=== PATIENT | female | born 1990 | race Caucasian/White ===

== ENCOUNTER 2017-01-22 14:24 | Emergency (ER) | payer MEDICAID, OTHER ==
[~2017-01-22] VITALS: Ht 160 cm; Wt 67.1 kg
[2017-01-22 14:30] VITALS: BP 125/83
[2017-01-22] MEDS ORDERED: KETOROLAC TROMETH 60MG/2ML VIAL IM ONE (16:15)
== END 2017-01-22 16:46 | disposition home or self-care (01) ==
LOC: ER 14:30
DX: G44.209 Tension-type headache, unspecified, not intractable (principal); M62.838 Other muscle spasm
CPT/HCPCS: 96372; 99283; J1885

== ENCOUNTER 2018-03-12 18:10 | Emergency (ER) | payer MEDICAID ==
[~2018-03-12] VITALS: Ht 160 cm; Wt 49.9 kg
[2018-03-12 19:37] LABS: Urine Amorphous Crystal MOD /hpf (None Seen); Urine Bacteria NONE SEEN /hpf (None Seen); Urine Blood Negative /uL (Negative); Urine Specific Gravity 1.014 (1.001-1.035); Urine WBC 14 /hpf (0 - 5)
[2018-03-12 19:48] LABS: Alcohol, Urine < 3.0 mg/dL (0-5); Amphetamine Screen, Urine NEGATIVE (NEGATIVE); Barbiturate Scree,Urine NEGATIVE (NEGATIVE); Benzodiazephine Screen, Urine NEGATIVE (NEGATIVE); Cannabinoid Screen, Urine POSITIVE (NEGATIVE); Cocaine Screen, Urine NEGATIVE (NEGATIVE); Opiate Scree,Urine NEGATIVE (NEGATIVE); Phencyclidine Screen, Urine NEGATIVE (NEGATIVE)
[2018-03-13] MEDS ORDERED: ALPRAZolam 0.5 MG TAB PO ONE (00:30)
[2018-03-13 00:32] VITALS: BP 102/74
== END 2018-03-13 00:45 | disposition home or self-care (01) ==
LOC: ER 18:10
DX: F41.9 Anxiety disorder, unspecified (principal); N39.0 Urinary tract infection, site not specified; F17.210 Nicotine dependence, cigarettes, uncomplicated
CPT/HCPCS: 80307; 81001; 81025

== ENCOUNTER 2018-07-12 21:30 | Emergency (ER) | payer MEDICAID ==
[~2018-07-12] VITALS: Ht 160 cm; Wt 49.9 kg
[2018-07-12 22:11] VITALS: BP 127/77
== END 2018-07-12 23:30 | disposition home or self-care (01) ==
LOC: ER 21:37
DX: M62.838 Other muscle spasm (principal); M54.2 Cervicalgia; M25.512 Pain in left shoulder; M25.511 Pain in right shoulder; V49.59XA Passenger injured in collision with other motor vehicles in traffic accident, initial encounter; Y93.89 Activity, other specified; Y99.8 Other external cause status; Y92.89 Other specified places as the place of occurrence of the external cause

== ENCOUNTER 2018-08-30 18:00 | Emergency (ER) | payer MEDICAID ==
[~2018-08-30] VITALS: Ht 160 cm; Wt 49.9 kg
[2018-08-30 19:04] LABS: Basophils # (auto) 0.1 uL; Basophils % (auto) 0.8 % (0.0-2.0); Eosinophils # (auto) 0.1 uL; Eosinophils % (auto) 1.5 % (0.0-7.0); Hematocrit 38.1 % (36.0-46.0); Hemoglobin 12.6 g/dL (12.2-16.2); Lymphocytes % (auto) 32.4 % (10.0-50.0); Mean Corpuscular Hemoglobin 28.6 pg (28.0-32.0); Mean Corpuscular Volume 86.7 fL (80.0-100.0); Monocytes # (auto) 0.5 uL; Monocytes % (auto) 5.7 % (0.0-12.0); Neutrophils # (auto) 5.5 uL; Neutrophils % (auto) 59.6 % (37.0-80.0); Platelet Count (auto) 221 10^3/uL (140-450); Red Cell Distribution Width 14.6 % (11.8-14.3); White Blood Cell 9.2 10^3/uL (4.4-10.8)
[2018-08-30] MEDS ORDERED: ONDANSETRON HCL 4 MG/2 ML VIAL IV ONE (19:15)
[2018-08-30] MEDS ORDERED: MORPHINE SULFATE 4 MG/ML SYR/VIAL IV ONE (19:15)
[2018-08-30] MEDS ORDERED: medroxyPROGESTERone ACETATE 5 MG TAB PO ONE (19:30)
[2018-08-30 19:56] VITALS: BP 103/61
== END 2018-08-30 20:16 | disposition home or self-care (01) ==
LOC: ER 18:00
DX: N93.8 Other specified abnormal uterine and vaginal bleeding (principal)
CPT/HCPCS: 36415; 84702; 85025; 96374; 96375; 99283; J2270; J2405

== ENCOUNTER 2019-03-29 18:14 | Emergency (ER) | payer MEDICAID ==
[~2019-03-29] VITALS: Ht 160 cm; Wt 59.0 kg
[2019-03-29] MEDS ORDERED: ACETAMINOPHEN/CODEINE#3 (300/30mg) TAB PO ONE (20:00)
[2019-03-29] MEDS ORDERED: DexAMETHasone SOD PHOS 10MG/1ML VIAL INJ IM ONE (20:00)
[2019-03-29] MEDS ORDERED: cefTRIAXone SOD 1,000 MG VL IM ONE (20:00)
[2019-03-29] MEDS ORDERED: LIDOCAINE 1% HCL (LOCAL ANESTH.) INJ 20ML MDV ONE (20:25)
[2019-03-29 20:34] VITALS: BP 116/68
[2019-03-29] MEDS ORDERED: LIDOCAINE 1% HCL (LOCAL ANESTH.) INJ 20ML MDV ID ONE (20:45)
== END 2019-03-29 21:48 | disposition home or self-care (01) ==
LOC: ER 18:14
DX: J06.9 Acute upper respiratory infection, unspecified (principal); R50.9 Fever, unspecified
CPT/HCPCS: 96372; 99283; J0696; J1100; J2001

== ENCOUNTER 2019-08-08 08:48 | Emergency (ER) | payer SELFPAY ==
[~2019-08-08] VITALS: Ht 160 cm; Wt 61.2 kg
[2019-08-08 09:15] VITALS: BP 111/71
[2019-08-08 09:36] LABS: Urine Bacteria NONE SEEN /hpf (None Seen); Urine Blood Negative /uL (Negative); Urine Specific Gravity 1.007 (1.001-1.035); Urine WBC <1 /hpf (0 - 5)
[2019-08-08 09:56] LABS: Basophils # (auto) 0.1 uL; Eosinophils # (auto) 0.1 uL; Hemoglobin 11.8 g/dL (12.2-16.2); Monocytes # (auto) 0.6 uL; Red Cell Distribution Width 19.3 % (11.8-14.3); White Blood Cell 7.5 10^3/uL (4.4-10.8)
[2019-08-08 09:58] LABS: Eosinophils % (auto) 1.8 % (0.0-7.0); Hematocrit 36.3 % (36.0-46.0); Lymphocytes % (auto) 26.5 % (10.0-50.0); Mean Corpuscular Hemoglobin 23.9 pg (28.0-32.0); Mean Corpuscular Hgb Conc. 32.5 g/dL (32.0-36.0); Mean Corpuscular Volume 73.5 fL (80.0-100.0); Monocytes % (auto) 7.5 % (0.0-12.0); Neutrophils # (auto) 4.7 uL; Neutrophils % (auto) 63.2 % (37.0-80.0); Platelet Count (auto) 210 10^3/uL (140-450); Red Blood Cells 4.94 10^6/uL (4.0-5.20)
[2019-08-08 10:14] LABS: Albumin 3.9 g/dL (3.4-5.0); Calcium 8.9 mg/dL (8.5-10.1); Potassium 4.2 mmol/L (3.5-5.1)
[2019-08-08] MEDS ORDERED: KETOROLAC TROMETH 60MG/2ML VIAL IM ONE (10:15)
[2019-08-08 10:18] LABS: BUN/Creatinine Ratio 12.4; Bilirubin, Total 0.5 mg/dL (0.2-1.0); Total Protein 7.1 g/dL (6.4-8.2)
== END 2019-08-08 10:47 | disposition home or self-care (01) ==
LOC: ER 08:48
DX: K29.70 Gastritis, unspecified, without bleeding (principal)
CPT/HCPCS: 36415; 74176; 80053; 81001; 85025; 96372; 99284; J1885

== ENCOUNTER 2022-05-03 18:06 | Observation (INO) | payer MEDICAID, OTHER ==
[~2022-05-03] VITALS: Ht 160 cm; Wt 60.0 kg
[2022-05-03 19:17] LABS: Urine Amorphous Crystal FEW /hpf (None Seen); Urine Bacteria MOD /hpf (None Seen); Urine Blood Negative /uL (Negative); Urine Mucus FEW (None Seen); Urine Specific Gravity 1.008 (1.001-1.035); Urine WBC 7 /hpf (0 - 5)
[2022-05-03 21:23] VITALS: BP 107/68
[2022-05-03] MEDS ORDERED: FERR-7 PO (22:01)
[2022-05-03] MEDS ORDERED: PREN-96 PO (22:01)
== END 2022-05-04 00:26 | disposition home or self-care (01) ==
LOC: ER 18:07 → UNDOADMOB 20:47 → LDRP 20:47 → ER 21:41 → LDRP 21:47
PROVIDERS: ADMIT Obstetrics & Gynecology Obstetrics; ATTEND Obstetrics & Gynecology Obstetrics
DX: O23.42 Unspecified infection of urinary tract in pregnancy, second trimester (principal); O62.9 Abnormality of forces of labor, unspecified; O26.892 Other specified pregnancy related conditions, second trimester; R10.2 Pelvic and perineal pain; D84.9 Immunodeficiency, unspecified; O99.891 Other specified diseases and conditions complicating pregnancy; M54.9 Dorsalgia, unspecified; Z3A.26 26 weeks gestation of pregnancy; Z98.891 History of uterine scar from previous surgery; Z79.899 Other long term (current) drug therapy
CPT/HCPCS: 59025; 76815; 81001; 81002; 94760; 99284; G0378

== ENCOUNTER 2023-10-10 14:09 | Emergency (ER) | payer MEDICAID, OTHER ==
[~2023-10-10] VITALS: Ht 160 cm; Wt 62.2 kg
[~2023-10-10 14:09] MED LIST: FERR-7 PO; PREN-96 PO
[2023-10-10 14:47] LABS: Basophils # (auto) 0.1 10 ^3/uL (0-0.2); Eosinophils # (auto) 0.2 10 ^3/uL (0-0.8); Hemoglobin 9.6 g/dL (12.2-16.2); Monocytes # (auto) 0.6 10 ^3/uL (0-1.3); Monocytes % (auto) 6.2 % (0.0-12.0)
[2023-10-10 14:48] LABS: Hematocrit 30.8 % (36.0-46.0); Lymphocytes # (auto) 3.2 10 ^3/uL (0.4-5.4); Lymphocytes % (auto) 33.4 % (10.0-50.0); Mean Corpuscular Hgb Conc. 31.2 g/dL (32.0-36.0); Mean Corpuscular Volume 73.6 fL (80.0-100.0); Neutrophils # (auto) 5.5 10 ^3/uL (1.6-8.6); Neutrophils % (auto) 57.4 % (37.0-80.0); Red Blood Cells 4.18 10^6/uL (4.0-5.20); Red Cell Distribution Width 18.1 % (11.8-14.3); White Blood Cell 9.5 10^3/uL (4.4-10.8)
[2023-10-10 14:56] LABS: Urine Bacteria FEW /hpf (None Seen); Urine Blood Negative /uL (Negative); Urine Clarity Clear (Clear); Urine Color Colorless (Yellow); Urine Protein, UAD Negative (Negative); Urine Specific Gravity 1.005 (1.001-1.035); Urine Urobilinogen Normal (Negative); Urine WBC 1 /hpf (0 - 5); Urine pH 6.5 (5.0-8.0)
[2023-10-10 15:02] LABS: Chloride 109 mmol/L (98-107); Potassium 4.3 mmol/L (3.5-5.1); Sodium 138 mmol/L (136-145)
[2023-10-10 15:03] LABS: Anion Gap 3 (5-15); Calcium 8.9 mg/dL (8.7-10.4); Carbon Dioxide 26 mmol/L (20-30)
[2023-10-10 15:08] LABS: BUN/Creatinine Ratio 15.9 (10.0-20.0); Blood Urea Nitrogen 13 mg/dL (9-23); Glucose 87 mg/dL (74-106)
[2023-10-10] MEDS: HYDROcodone-ACET 10/325MG TAB PO ONE (16:28)
[2023-10-10] MEDS ORDERED: HYDR-4902 PO (21:16)
[2023-10-10 22:45] VITALS: BP 109/75; PULSE 73; RESP 16; TEMP 98; O2SAT 100
== END 2023-10-10 23:01 | disposition home or self-care (01) ==
LOC: ER 14:09
DX: D21.9 Benign neoplasm of connective and other soft tissue, unspecified (principal); N83.202 Unspecified ovarian cyst, left side; N83.201 Unspecified ovarian cyst, right side; F17.290 Nicotine dependence, other tobacco product, uncomplicated
CPT/HCPCS: 36415; 74176; 76856; 80048; 81001; 84702; 85025

== ENCOUNTER 2023-12-10 21:01 | Inpatient (IN) | payer MEDICAID ==
[~2023-12-10] VITALS: Ht 160 cm; Wt 101.0 kg
[~2023-12-10 21:01] MED LIST changes: +HYDR-4902 PO
[2023-12-10 21:41] LABS: Chloride 107 mmol/L (98-107); Sodium 138 mmol/L (136-145)
[2023-12-10 21:42] LABS: Anion Gap 5 (5-15); Carbon Dioxide 26 mmol/L (20-30)
[2023-12-10] MEDS: ONDANSETRON HCL 4 MG/2 ML VIAL IV ONE (21:42)
[2023-12-10 21:43] LABS: Calcium 10.3 mg/dL (8.7-10.4)
[2023-12-10 21:48] LABS: BUN/Creatinine Ratio 9.5 (10.0-20.0); Blood Urea Nitrogen 8 mg/dL (9-23); Glucose 89 mg/dL (74-106)
[2023-12-10] MEDS: MORPHINE SULFATE 4 MG/ML SYR/VIAL IV ONE (21:49)
[2023-12-10 21:52] LABS: Urine Bacteria None Seen /hpf (None Seen)
[2023-12-10 21:58] LABS: Basophils # (auto) 0.1 10 ^3/uL (0-0.2); Basophils % (auto) 0.8 % (0.0-2.0); Eosinophils # (auto) 0.1 10 ^3/uL (0-0.8); Monocytes # (auto) 0.6 10 ^3/uL (0-1.3); White Blood Cell 10.5 10^3/uL (4.4-10.8)
[2023-12-10 21:58] LABS: Urine Blood Negative /uL (Negative); Urine Clarity Clear (Clear); Urine Color Light-Yellow (Yellow); Urine Protein, UAD Negative (Negative); Urine Specific Gravity 1.011 (1.001-1.035); Urine Urobilinogen Normal (Negative); Urine WBC 6 /hpf (0 - 5)
[2023-12-10 21:59] LABS: Eosinophils % (auto) 1.2 % (0.0-7.0); Hematocrit 34.3 % (36.0-46.0); Hemoglobin 10.7 g/dL (12.2-16.2); Lymphocytes # (auto) 3.2 10 ^3/uL (0.4-5.4); Lymphocytes % (auto) 30.5 % (10.0-50.0); Mean Corpuscular Hemoglobin 22.1 pg (28.0-32.0); Mean Corpuscular Hgb Conc. 31.3 g/dL (32.0-36.0); Mean Corpuscular Volume 70.6 fL (80.0-100.0); Monocytes % (auto) 5.6 % (0.0-12.0); Neutrophils # (auto) 6.5 10 ^3/uL (1.6-8.6); Neutrophils % (auto) 61.9 % (37.0-80.0); Red Blood Cells 4.86 10^6/uL (4.0-5.20)
[2023-12-10 22:01] LABS: Red Cell Distribution Width 21.2 % (11.8-14.3)
[2023-12-11] MEDS: KETOROLAC TROMETH 30 MG/ML 1ML VIAL IV ONE (01:03)
[2023-12-11] MEDS: cefTRIAXone 1GM/50ML D5W 50 ML IV ONE (01:04)
[2023-12-11 01:37] VITALS: PULSE 62; RESP 15; O2SAT 97
[2023-12-11] MEDS ORDERED: MORPHINE SULFATE 4 MG/ML SYR/VIAL IV ONE (02:45)
[2023-12-11] MEDS ORDERED: DOCUSATE SOD 100 MG CAP PO PRN (02:45)
[2023-12-11] MEDS: MORPHINE SULFATE 4 MG/ML SYR/VIAL IV ONE (02:58)
[2023-12-11] MEDS: SODIUM CHLORIDE 0.9% 1,000 ML IV SCH (02:58)
[2023-12-11 03:49] LABS: Basophils # (auto) 0.1 10 ^3/uL (0-0.2); Eosinophils # (auto) 0.2 10 ^3/uL (0-0.8); Hemoglobin 10.1 g/dL (12.2-16.2); Lymphocytes # (auto) 3.9 10 ^3/uL (0.4-5.4); Monocytes # (auto) 0.6 10 ^3/uL (0-1.3); Nucleated Red Blood Cells % 0.1 %
[2023-12-11 03:50] LABS: Basophils % (auto) 1.1 % (0.0-2.0); Eosinophils % (auto) 2.1 % (0.0-7.0); Hematocrit 32.2 % (36.0-46.0); Lymphocytes % (auto) 40.6 % (10.0-50.0); Mean Corpuscular Hemoglobin 22.1 pg (28.0-32.0); Mean Corpuscular Hgb Conc. 31.5 g/dL (32.0-36.0); Mean Corpuscular Volume 70.1 fL (80.0-100.0); Monocytes % (auto) 6.3 % (0.0-12.0); Neutrophils # (auto) 4.8 10 ^3/uL (1.6-8.6); Neutrophils % (auto) 49.9 % (37.0-80.0); White Blood Cell 9.5 10^3/uL (4.4-10.8)
[2023-12-11] MEDS ORDERED: NITROGLYCERIN 0.4 MG SL TAB SL PRN (04:00)
[2023-12-11] MEDS ORDERED: MORPHINE SULFATE INJ 2 MG/ml SYRG IV PRN (04:00)
[2023-12-11 04:01] LABS: Red Cell Distribution Width 21.7 % (11.8-14.3)
[2023-12-11 04:33] LABS: Alanine Aminotransferase 15 U/L (7-40); Alkaline Phosphatase 63 U/L (46-116); Anion Gap 7 (5-15); Aspartate Aminotransferase 13 U/L (13-40); Bilirubin, Total 0.4 mg/dL (0.2-1.0); Blood Urea Nitrogen 8 mg/dL (9-23); Calcium 9.4 mg/dL (8.7-10.4); Carbon Dioxide 24 mmol/L (20-30); Chloride 108 mmol/L (98-107); Glucose 85 mg/dL (74-106); Potassium 3.6 mmol/L (3.5-5.1); Sodium 139 mmol/L (136-145); Total Protein 6.2 g/dL (5.7-8.2)
[2023-12-11 05:57] LABS: Anisocytosis Slight; Hypochromia Moderate; Platelet Estimate Adequate
[2023-12-11 07:30] VITALS: PULSE 65; RESP 13; O2SAT 92
[2023-12-11] MEDS: ONDANSETRON HCL 4 MG/2 ML VIAL IV PRN (08:10)
[2023-12-11] MEDS: MORPHINE SULFATE INJ 2 MG/ml SYRG IV PRN (08:11)
[2023-12-11] MEDS: HYDROcodone-ACET 5/325MG TAB PO PRN (12:58)
[2023-12-11 13:13] VITALS: BP 98/63; PULSE 66; PULSE 80; RESP 18; TEMP 98.2; O2SAT 97; O2SAT 98
[2023-12-11] MEDS ORDERED: ASCO500C49 PO (13:31)
[2023-12-11 17:22] VITALS: BP 101/39; PULSE 69; RESP 20; TEMP 98.3; O2SAT 95
[2023-12-11] MEDS: ACETAMINOPHEN 325 MG TAB PO PRN (20:35)
[2023-12-11 21:00] VITALS: BP 100/55; PULSE 85; RESP 14; TEMP 98.8; O2SAT 98
[2023-12-11 22:12] LABS: Basophils # (auto) 0.1 10 ^3/uL (0-0.2); Basophils % (auto) 1.2 % (0.0-2.0); Eosinophils # (auto) 0.2 10 ^3/uL (0-0.8); Eosinophils % (auto) 2.4 % (0.0-7.0); Hematocrit 32.5 % (36.0-46.0); Hemoglobin 9.9 g/dL (12.2-16.2); Lymphocytes # (auto) 2.3 10 ^3/uL (0.4-5.4); Mean Corpuscular Hemoglobin 21.7 pg (28.0-32.0); Mean Corpuscular Hgb Conc. 30.5 g/dL (32.0-36.0); Mean Corpuscular Volume 71.3 fL (80.0-100.0); Monocytes # (auto) 0.5 10 ^3/uL (0-1.3); Monocytes % (auto) 7.7 % (0.0-12.0); Neutrophils # (auto) 3.9 10 ^3/uL (1.6-8.6); Neutrophils % (auto) 55.7 % (37.0-80.0); Nucleated Red Blood Cells % 0.1 %; Red Blood Cells 4.56 10^6/uL (4.0-5.20); Red Cell Distribution Width 21.8 % (11.8-14.3); White Blood Cell 7.1 10^3/uL (4.4-10.8)
[2023-12-12] MEDS: cefTRIAXone 1GM/50ML D5W 50 ML IV SCH (00:49)
[2023-12-12 01:00] VITALS: BP 93/53; PULSE 63; RESP 14; TEMP 98.6; O2SAT 92
[2023-12-12 05:00] VITALS: BP 101/57; PULSE 79; RESP 14; TEMP 98.2; O2SAT 95
[2023-12-12 07:24] LABS: Basophils # (auto) 0.1 10 ^3/uL (0-0.2); Eosinophils # (auto) 0.2 10 ^3/uL (0-0.8); Hemoglobin 9.8 g/dL (12.2-16.2); Monocytes # (auto) 0.5 10 ^3/uL (0-1.3); White Blood Cell 7.1 10^3/uL (4.4-10.8)
[2023-12-12 07:26] LABS: Basophils % (auto) 0.9 % (0.0-2.0); Eosinophils % (auto) 2.3 % (0.0-7.0); Hematocrit 31.5 % (36.0-46.0); Lymphocytes # (auto) 2.4 10 ^3/uL (0.4-5.4); Lymphocytes % (auto) 34.5 % (10.0-50.0); Mean Corpuscular Hemoglobin 22.1 pg (28.0-32.0); Mean Corpuscular Hgb Conc. 31.2 g/dL (32.0-36.0); Mean Corpuscular Volume 70.9 fL (80.0-100.0); Monocytes % (auto) 6.9 % (0.0-12.0); Neutrophils # (auto) 3.9 10 ^3/uL (1.6-8.6); Neutrophils % (auto) 55.4 % (37.0-80.0); Red Blood Cells 4.45 10^6/uL (4.0-5.20); Red Cell Distribution Width 21.1 % (11.8-14.3)
[2023-12-12 07:38] LABS: Alanine Aminotransferase 12 U/L (7-40); Albumin 3.6 g/dL (3.2-4.8); Alkaline Phosphatase 58 U/L (46-116); Anion Gap 4 (5-15); Aspartate Aminotransferase 9 U/L (13-40); BUN/Creatinine Ratio 15.4 (10.0-20.0); Bilirubin, Total 0.2 mg/dL (0.2-1.0); Blood Urea Nitrogen 12 mg/dL (9-23); Calcium 8.5 mg/dL (8.5-10.1); Carbon Dioxide 26 mmol/L (20-30); Chloride 111 mmol/L (98-107); Glucose 101 mg/dL (74-106); Potassium 4.2 mmol/L (3.5-5.1); Sodium 141 mmol/L (136-145)
[2023-12-12 07:39] LABS: Total Protein 5.3 g/dL (5.7-8.2)
[2023-12-12 09:22] VITALS: BP 98/51; PULSE 75; RESP 16; TEMP 97.6; O2SAT 94
[2023-12-12] MEDS ORDERED: HYDR-4902 PO (11:51)
[2023-12-12] MEDS ORDERED: LEVO500T91 PO (11:51)
[2023-12-12 13:24] VITALS: BP 111/77; PULSE 99; RESP 16; TEMP 97.9; O2SAT 95
== END 2023-12-12 17:10 | disposition home or self-care (01) | DRG 532 ==
LOC: ER 21:01 → TELE 12-11 04:02 → TELE-WESTW 12-11 12:41 → WEST WING 12-11 14:01
PROVIDERS: ADMIT Nurse Practitioner Family; ATTEND Nurse Practitioner Family
DX: N83.202 Unspecified ovarian cyst, left side (principal); D25.9 Leiomyoma of uterus, unspecified; F17.200 Nicotine dependence, unspecified, uncomplicated; N39.0 Urinary tract infection, site not specified; Z79.891 Long term (current) use of opiate analgesic; Z79.899 Other long term (current) drug therapy; Z97.5 Presence of (intrauterine) contraceptive device
CPT/HCPCS: 36415; 76830; 80048; 80053; 81001; 81025; 85025; 87086; 96365; 96375; 96376; G0378; J1885; J2405

== ENCOUNTER 2024-01-07 14:19 | Emergency (ER) | payer MEDICAID ==
[~2024-01-07] VITALS: Ht 160 cm; Wt 100.0 kg
[~2024-01-07 14:19] MED LIST changes: +LEVO500T91 PO; -PREN-96 PO
[2024-01-07] MEDS: HYDROcodone-ACET 5/325MG TAB PO ONE (15:08)
[2024-01-07 15:27] LABS: Basophils # (auto) 0.1 10 ^3/uL (0-0.2)
[2024-01-07 15:29] LABS: Basophils % (auto) 0.7 % (0.0-2.0); Eosinophils # (auto) 0.2 10 ^3/uL (0-0.8); Eosinophils % (auto) 1.5 % (0.0-7.0); Hematocrit 35.5 % (36.0-46.0); Hemoglobin 11.4 g/dL (12.2-16.2); Lymphocytes # (auto) 2.4 10 ^3/uL (0.4-5.4); Lymphocytes % (auto) 23.8 % (10.0-50.0); Mean Corpuscular Hemoglobin 23.3 pg (28.0-32.0); Mean Corpuscular Volume 72.9 fL (80.0-100.0); Monocytes # (auto) 0.6 10 ^3/uL (0-1.3); Monocytes % (auto) 5.5 % (0.0-12.0); Neutrophils % (auto) 68.5 % (37.0-80.0); Red Blood Cells 4.87 10^6/uL (4.0-5.20); White Blood Cell 10.3 10^3/uL (4.4-10.8)
[2024-01-07 15:34] LABS: Red Cell Distribution Width 21.7 % (11.8-14.3)
[2024-01-07 15:50] LABS: Alanine Aminotransferase 20 U/L (7-40); Alkaline Phosphatase 63 U/L (46-116); Anion Gap 5 (5-15); Blood Urea Nitrogen 11 mg/dL (9-23); Calcium 9.9 mg/dL (8.7-10.4); Carbon Dioxide 27 mmol/L (20-30); Chloride 107 mmol/L (98-107); Glucose 98 mg/dL (74-106); Potassium 4.6 mmol/L (3.5-5.1); Sodium 139 mmol/L (136-145)
[2024-01-07 15:51] LABS: Albumin 4.3 g/dL (3.2-4.8); Aspartate Aminotransferase 8 U/L (13-40); Bilirubin, Total 0.3 mg/dL (0.2-1.0); Total Protein 6.5 g/dL (5.7-8.2)
[2024-01-07 17:04] LABS: Urine Bacteria FEW /hpf (None Seen); Urine Blood 3+ /uL (Negative); Urine Clarity Turbid (Clear); Urine Color Light-Red (Yellow); Urine Protein, UAD 2+ (Negative); Urine Specific Gravity 1.006 (1.001-1.035); Urine Urobilinogen Normal (Negative); Urine WBC 18 /hpf (0 - 5)
[2024-01-07] MEDS: NITROFURANTOIN 100 mg CAP PO ONE (17:49)
[2024-01-07] MEDS ORDERED: ACE3T PO (18:03)
[2024-01-07] MEDS ORDERED: NITR-87 PO (18:03)
[2024-01-07 18:25] VITALS: BP 134/75; PULSE 66; RESP 16; TEMP 97.6; O2SAT 98
== END 2024-01-07 18:26 | disposition home or self-care (01) ==
LOC: ER 14:19
DX: N92.0 Excessive and frequent menstruation with regular cycle (principal); R10.2 Pelvic and perineal pain; N39.0 Urinary tract infection, site not specified
CPT/HCPCS: 36415; 80053; 81001; 84702; 85025

== ENCOUNTER 2024-05-25 08:09 | Emergency (ER) | payer MEDICAID ==
[~2024-05-25] VITALS: Ht 160 cm; Wt 91.4 kg
[~2024-05-25 08:09] MED LIST changes: +ACE3T PO; +NITR-87 PO
[2024-05-25 08:52] VITALS: BP 134/83; PULSE 94; RESP 17; TEMP 98.5; O2SAT 98
--- NOTE | 2024-05-25 09:00 | DVH ---
CHEST RADIOGRAPH Indication:COUGH Technique: Single frontal view of the chest was obtained Comparison: None FINDINGS: Lines and Tubes: None Lungs: No focal consolidation. Pleura: No effusion.No pneumothorax. Cardiomediastinal contours: Unremarkable Bones: No acute osseous abnormality. IMPRESSION: 1. No acute cardiopulmonary disease. HS:Y
--- NOTE | 2024-05-25 09:05 | ED.PDOC ---
Eye-HPI HPI Comments A 33 YEAR OLD FEMALE PRESENTS TO THE ED WITH COMPLAINT OF FLU-LIKE SYMPTOMS. PATIENT STATES SHE HAS BEEN EXPERIENCING A SORE THROAT, COUGH, CONGESTION, VOICE LOSS, OCCASIONAL FEVER, AND LEFT EAR PAIN FOR THE PAST 5 DAYS. PATIENT REPORTS HER COUGH HAS BEEN CAUSING HER CHEST AND BACK TO FEEL SORE. PATIENT DENIES CHILLS, SHORTNESS OF BREATH, CHEST PAIN, ABDOMINAL PAIN, NAUSEA, VOMITING, HEADACHE, OR OTHER COMPLAINTS. NO OTHER SYMPTOMS OR MODIFYING FACTORS AT THIS TIME. PATIENT IS ALERT, ORIENTED X 4, AND HAS STEADY GAIT. Chief Complaint: Flu like Time Seen by MD: 08:24 Primary Care Provider: UNKNOWN Reviewed Notes: Nurses Notes, Medications, Allergies Allergies: Coded Allergies: NO KNOWN ALLERGIES (Unverified , 01/22/17) Home Meds Active Scripts Prednisone (Prednisone) 20 Mg Tab, 60 MG PO DAILY, #15 TAB Prov:KATERINE CANCINO 05/25/24 Promethazine-Dm (Promethazine Dm 6.25-15 mg/5Ml) 1 Louisa Louisa, 5 ML PO TID, #160 ML Prov:KATERINE CANCINO 05/25/24 Amoxicillin Trihydrate (Amoxicillin) 875 Mg Tab, 1 TAB PO BID, #20 TAB Prov:KATERINE CANCINO 05/25/24 Acetaminophen W/ Codeine (Tylenol W/Cod #3) 1 Tab Tb, 1 TAB PO Q6HP PRN, #20 TAB Prov:IFTIKHAR ROOT PAC 01/07/24 Nitrofurantoin Monohydrate Mac (Macrobid) 100 Mg Cap, 100 MG PO BID for 7 Days, #14 CAP Prov:IFTIKHAR ROOT PAC 01/07/24 Levofloxacin Hemihydrate (LEVAQUIN 500 MG) 500 Mg Tab, 1 TAB PO DAILY, #7 TAB Prov:MARIO ANDERSON MD 12/12/23 Hydrocodone-Acetaminophen (Hydrocodone Bitartrate/AC 5-325 mg) 1 Tab Tab, 1 TAB PO Q4HP PRN, #20 TAB Prov:MARIO ANDERSON MD 12/12/23 Reported Medications Ferrous Sulfate (Iron) 325 Mg Tab, 325 MG PO, TAB 05/03/22 Information Source: Patient Mode of Arrival: Ambulatory Timing: Days Duration: Since onset, Days Prehospital treatment: None Quality: Pain, Red Lids: Normal Conjunctiva: Normal Cornea: Normal Pupils: Normal EOM: Normal Fundus: Normal Slit lamp exam: Normal Anterior chamber: Normal Mouth Location: Pharynx Mouth: Normal ENT Ear Exam: Normal, Red, Bulging, Normal Nose: Normal Sinuses: Normal Oropharynx: Tonsillar hypertrophy, Red Onset: Spontaneous Throat Exposed to: None History of: None Last Tetanus: Unknown Modifying factors: Nothing Associated signs and symptoms: Fever, Chills, Sore Throat, Ear Pain Past Medical History PAST MEDICAL HISTORY: Denies 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 MAN History: Ovarian Cysts, Other Family History Family History: Reviewed,noncontributory to illness Social History Smoker: Non-Smoker Alcohol: Denies ETOH Use Drugs: Denies Drug Use Lives In: Home Constitutional: denies: chills, diaphoresis, fatigue, fever, malaise, sweats, w eakness, others EENTM: reports: ear pain (LEFT EAR PAIN), nose congestion, throat pain, throat swelling; denies: blurred vision, double vision, ear bleeding, ear discharge, ear drainage, ear ringing, eye pain, eye redness, hearing loss, mouth pain, mouth swelling, nasal discharge, nose bleeding, nose pain, photophobia, tearing, voice changes, others Respiratory: reports: cough; denies: hemoptysis, orthopnea, SOB at rest, shortness of breath, SOB with excertion, stridor, wheezing, others Cardiovascular: denies: chest pain, dizzy spells, diaphoresis, Dyspnea on exertion, edema, irregular heart beat, left arm pain, lightheadedness, palpitations, PND, syncope, others Gastrointestinal: denies: abdomen distended, abdominal pain, blood streaked bowels, constipated, diarrhea, dysphagia, difficulty swallowing, hematemesis, melena, nausea, poor appetite, poor fluid intake, rectal bleeding, rectal pain, vomiting, others Genitourinary: denies: abnormal vagina bleeding, burning, dyspareunia, dysuria, flank pain, frequency, hematuria, incontinence, pain, , vagina discharge, urgency, others Neurological: denies: dizziness, fainting, headache, left sided numbness, left sided weakness, numbness, paresthesia, pre-existing deficit, right sided numbness, right sided weakness, seizure, speech problems, tingling, tremors, weakness, others Musculoskeletal: reports: muscle pain; denies: back pain, gout, joint pain, joint swelling, muscle stiffness, neck pain, others Integumetry: denies: bruises, change in color, change in hair/nails, dryness, laceration, lesions, lumps, rash, wounds, others Allergic/Immunocompromised: denies: Difficulty Healing, Frequent Infections, Hives, Itching, others Hematologic/Lymphatic: denies: anemia, blood clots, easy bleeding, easy bruising, swollen glands, others Endocrine: denies: excessive hunger, excessive sweating, excessive thirst, excessive urination, flushing, intolerance to cold, intolerance to heat, unexplained weight gain, unexplained weight loss, others Psychiatric: denies: anxiety, bipolar disorder, depression, hopeless, panic disorder, schizophrenia, sleepless, suicidal, others All Other Systems: Reviewed and Negative Physical Exam General Appearance: Obese HEENT: PERRL/EOMI, Pharyngeal Erythema (VESICLE PHARYNX, NO EXUDATES. ), TM Abnormal (L) (ERYTHEMA AND DULL OF LEFT TM WITH MILD EFFUSION. ) Neck: Full Range of Motion, Non-Tender, Normal, Normal Inspection Respiratory: Chest Non-Tender, Inspiration, No Accessory Muscle Use, No Respiratory Distress, Rhonchi Cardiovascular: No Edema, No JVD, No Murmur, No Gallop, Normal Peripheral Pulses, Regular Rate/Rhythm Breast Exam: Deferred Gastrointestinal: No Organomegaly, Non Tender, No Pulsatile Mass, Normal Bowel Sounds, Soft Genitalia: Deferred Pelvic: Deferred Rectal: Deferred Extremities: No calf tenderness, Normal capillary refill, Normal inspection, Normal range of motion, Non-tender, No pedal edema Musculoskeletal : Apperance: Normal Neurologic: Alert, bean snipper II-XII nml as Tested, No Motor Deficits, Normal Affect, Normal Mood, No Sensory Deficits Cerebellar Function: Normal Reflexes: Normal Skin: Dry, Normal Color, Warm Peripheral Pulses: 2+ carotid (R), 2+ carotid (L) Lymphatic: No Adenopathy Was a procedure done? Was a procedure done?: No EENT DIFF Eye: N/A Ear: Otitis Externa, Otitis Media, Pharyngitis, Sinusitis Nose: N/A Mouth: N/A Sore Throat: Pharyngitis, Streptococcal, Viral Pharyngitis, URI X-Ray, Labs, Meds, VS Vital Signs Date Time Temp Pulse Resp B/P (MAP) Pulse Ox O2 Delivery O2 Flow Rate FiO2 05/25/24 08:52 98.5 94 17 134/83 (100) 98 98.5 05/25/24 08:52 85 20 100 Room Air 05/25/24 08:31 17 98 Room Air* 0 21 05/25/24 08:26 98.5 94 7 134/83 (100) 98 CHEST RADIOGRAPH Indication:COUGH Technique: Single frontal view of the chest was obtained Comparison: None FINDINGS: Lines and Tubes: None Lungs: No focal consolidation. Pleura: No effusion.No pneumothorax. Cardiomediastinal contours: Unremarkable Bones: No acute osseous abnormality. IMPRESSION: 1. No acute cardiopulmonary disease. HS:Y ATED BY: ROB FONSECA MD DICTATED DATE/TIME: 05/25/24857 SIGNED BY: ROB FONSECA MD SIGNED DATE/TIME: 05/25/24857 CC: X-Ray, Labs, Meds, VS Comment TREATMENT: ROCEPHIN 1 G IM Images Reviewed?: Images reviewed and evaluated by me Time of 1ST Reevaluation: 09:40 Reevaluation 1ST: Improved Patient Education/Counseling: Diagnosis, Treatment, Need For Follow Up Family Education/Counseling: Diagnosis, Treatment, Need For Follow Up Medical Screening: No EMC Exist At This Time Departure 1 Departure Time of Disposition: 09:40 Impression: Primary Impression: Otitis media of left ear Qualified Codes: H65.02 - Acute serous otitis media, left ear Additional Impressions: Acute bronchitis Qualified Codes: J20.9 - Acute bronchitis, unspecified Acute pharyngitis Qualified Codes: J02.9 - Acute pharyngitis, unspecified Disposition: 01 HOME / SELF CARE / HOMELESS Condition: Stable Additional Instructions: FOLLOW-UP WITH PCP IN 1 TO 2 DAYS. TAKE MEDICATIONS PRESCRIBED. RETURN TO ED FOR ANY NEW OR WORSENING SYMPTOMS. e-Prescriptions Prednisone (Prednisone) 20 Mg Tab 60 MG PO DAILY, #15 TAB Prov: KATERINE CANCINO 05/25/24 Promethazine-Dm (Promethazine Dm 6.25-15 mg/5Ml) 1 Louisa Louisa 5 ML PO TID, #160 ML Prov: KATERINE CANCINO 05/25/24 Amoxicillin Trihydrate (Amoxicillin) 875 Mg Tab 1 TAB PO BID, #20 TAB Prov: KATERINE CANCINO 05/25/24 Discharged With: Self Critical Care Note Critical Care Time?: No Stability Stability form required: No Heart Score Heart Score: Heart Score Response (Comments) Value History N/A 0 EKG N/A 0 Age N/A 0 Risk Factors N/A 0 Troponin N/A 0 Total 0 I personally scribed for KATERINE CANCINO ([email or web address]) on 05/25/24 at 09:05. Electronically submitted by William Christiansen ([email or web address]). I personally scribed for KATERINE CANCINO ([email or web address]) on 05/25/24 at 09:21. Electronically submitted by William Christiansen ([email or web address]). KATERINE CANCINO May 25, 2024 09:05
[2024-05-25] MEDS ORDERED: PROM1SOL4 PO (09:22)
[2024-05-25] MEDS ORDERED: AMOX875T3 PO (09:22)
[2024-05-25] MEDS ORDERED: PRED20TA2 PO (09:23)
[2024-05-25] MEDS: cefTRIAXone SOD 1,000 MG VL IM ONE (09:24)
== END 2024-05-25 09:30 | disposition home or self-care (01) ==
LOC: ER 08:09
DX: J20.9 Acute bronchitis, unspecified (principal); H66.92 Otitis media, unspecified, left ear; Z79.52 Long term (current) use of systemic steroids
CPT/HCPCS: 71045; 96372; 99283; J0696

== ENCOUNTER 2024-10-31 18:40 | Emergency (ER) | payer MEDICAID ==
[~2024-10-31] VITALS: Ht 165.1 cm; Wt 68.5 kg
[~2024-10-31 18:40] MED LIST changes: +AMOX875T3 PO; +PRED20TA2 PO; +PROM1SOL4 PO
--- NOTE | 2024-10-31 18:57 | ED.PDOC ---
TERRAZZO HELPER HPI Comments 34 y/o F, with PMHx of PCOS and endometriosis presents to the ED for CC of vaginal bleeding. Patient states, that she has been experiencing abnormal vaginal bleeding with associated blood clots and supra pubic abdominal pain x2days. Patient relays, that this is the 5th day of her menstrual cycle and symptoms have worsened in the last two days. Patient endorses, that she received a laparoscopy x1year ago and symptoms of menorrhagia improved until now. Patient complains of current 8/10 pain. Patient denies current , vaginal discharge, vaginal cramping, or abdominal cramping. No other symptoms or modifying factors present at this time. Chief Complaint: ALOC Time Seen by MD: 18:49 Reviewed Notes: Nurses Notes, Medications, Allergies Allergies: Coded Allergies: NO KNOWN ALLERGIES (Unverified , 01/22/17) Home Meds Active Scripts Prednisone (Prednisone) 20 Mg Tab, 60 MG PO DAILY, #15 TAB Prov:KATERINE CANCINO 05/25/24 Promethazine-Dm (Promethazine Dm 6.25-15 mg/5Ml) 1 Louisa Louisa, 5 ML PO TID, #160 ML Prov:KATERINE CANCINO 05/25/24 Amoxicillin Trihydrate (Amoxicillin) 875 Mg Tab, 1 TAB PO BID, #20 TAB Prov:KATERINE CANCINO 05/25/24 Acetaminophen W/ Codeine (Tylenol W/Cod #3) 1 Tab Tb, 1 TAB PO Q6HP PRN, #20 TAB Prov:IFTIKHAR ROOT PAC 01/07/24 Nitrofurantoin Monohydrate Mac (Macrobid) 100 Mg Cap, 100 MG PO BID for 7 Days, #14 CAP Prov:IFTIKHAR ROOT PAC 01/07/24 Levofloxacin Hemihydrate (LEVAQUIN 500 MG) 500 Mg Tab, 1 TAB PO DAILY, #7 TAB Prov:MARIO ANDERSON MD 12/12/23 Hydrocodone-Acetaminophen (Hydrocodone Bitartrate/AC 5-325 mg) 1 Tab Tab, 1 TAB PO Q4HP PRN, #20 TAB Prov:MARIO ANDERSON MD 12/12/23 Reported Medications Ferrous Sulfate (Iron) 325 Mg Tab, 325 MG PO, TAB 05/03/22 Information Source: Patient Mode of Arrival: Ambulatory Timing: Days Severity: None Vaginal Discharge: None Bleeding Quality: Bright Red Vaginal Mass: None Onset Of Mass/Bleeding: Menstrual Sexual Activity: Neither Last Consensual [place]: Unknown Control: None Blood Type: Unknown Symptoms of Possible : None Associated Signs and Symptoms: Vaginal Bleeding, Abdominal Pain Past Medical History PAST MEDICAL HISTORY: Denies 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, Other (PCOS, ENDOMETRIOSIS) Family History Family History: Reviewed,noncontributory to illness Social History Smoker: Non-Smoker Alcohol: Denies ETOH Use Drugs: Denies Drug Use Lives In: Home Constitutional: denies: chills, diaphoresis, fatigue, fever, malaise, sweats, weakness, others EENTM: denies: blurred vision, double vision, ear bleeding, ear discharge, ear drainage, ear pain, ear ringing, eye pain, eye redness, hearing loss, mouth pain, mouth swelling, nasal discharge, nose bleeding, nose congestion, nose pain, photophobia, tearing, throat pain, throat swelling, voice changes, others Respiratory: denies: cough, hemoptysis, orthopnea, SOB at rest, shortness of breath, SOB with excertion, stridor, wheezing, others Cardiovascular: denies: chest pain, dizzy spells, diaphoresis, Dyspnea on exertion, edema, irregular heart beat, left arm pain, lightheadedness, palpitations, PND, syncope, others Gastrointestinal: reports: abdominal pain; denies: abdomen distended, blood streaked bowels, constipated, diarrhea, dysphagia, difficulty swallowing, hematemesis, melena, nausea, poor appetite, poor fluid intake, rectal bleeding, rectal pain, vomiting, others Genitourinary: reports: abnormal vagina bleeding; denies: burning, dyspareunia, dysuria, flank pain, frequency, hematuria, incontinence, pain, , vagina discharge, urgency, others Neurological: denies: dizziness, fainting, headache, left sided numbness, left sided weakness, numbness, paresthesia, pre-existing deficit, right sided numbness, right sided weakness, seizure, speech problems, tingling, tremors, weakness, others Musculoskeletal: denies: back pain, gout, joint pain, joint swelling, muscle pain, muscle stiffness, neck pain, others Integumetry: denies: bruises, change in color, change in hair/nails, dryness, laceration, lesions, lumps, rash, wounds, others Allergic/Immunocompromised: denies: Difficulty Healing, Frequent Infections, Hives, Itching, others Hematologic/Lymphatic: denies: anemia, blood clots, easy bleeding, easy bruising, swollen glands, others Endocrine: denies: excessive hunger, excessive sweating, excessive thirst, excessive urination, flushing, intolerance to cold, intolerance to heat, unexplained weight gain, unexplained weight loss, others Psychiatric: denies: anxiety, bipolar disorder, depression, hopeless, panic disorder, schizophrenia, sleepless, suicidal, others All Other Systems: Reviewed and Negative Physical Exam General Appearance: No Apparent Distress HEENT: Normal ENT Inspection, Pharynx Normal, TMs Normal Neck: Full Range of Motion, Non-Tender, Normal, Normal Inspection Respiratory: Chest Non-Tender, Lungs Clear, No Accessory Muscle Use, No Respiratory Distress, Normal Breath Sounds Cardiovascular: No Edema, No JVD, No Murmur, No Gallop, Normal Peripheral Pulses, Regular Rate/Rhythm Breast Exam: Deferred Gastrointestinal: No Organomegaly, Non Tender, No Pulsatile Mass, Normal Bowel Sounds, Soft Genitalia: Deferred Pelvic: Deferred Rectal: Deferred Extremities: No calf tenderness, Normal capillary refill, Normal inspection, Normal range of motion, Non-tender, No pedal edema Musculoskeletal : Apperance: Normal Neurologic: Alert, 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 Was a procedure done?: No Differential Diagnosis (CLASSIFICATION CLERK) Vaginal Bleeding: Menorrhagia, Menstrual Bleeding X-Ray, Labs, Meds, VS Vital Signs Date Time Temp Pulse Resp B/P (MAP) Pulse Ox O2 Delivery O2 Flow Rate FiO2 10/31/24 18:45 99.0 112 18 126/82 (97) 99 99.0 Lab Test 10/31/24 20:23 Range/Units White Blood Count 10.5 4.4-10.8 10^3/uL Red Blood Count 4.58 4.0-5.20 10^6/uL Hemoglobin 10.0 L 12.2-16.2 g/dL Hematocrit 32.8 L 36.0-46.0 % Mean Corpuscular Volume 71.7 L 80.0-100.0 fL Mean Corpuscular Hemoglobin 21.9 L 28.0-32.0 pg Mean Corpuscular Hemoglobin Concent 30.5 L 32.0-36.0 g/dL Red Cell Distribution Width 18.3 H 11.8-14.3 % Platelet Count 312 140-450 10^3/uL Mean Platelet Volume 9.6 6.9-10.8 fL Neutrophils (%) (Auto) 54.3 37.0-80.0 % Lymphocytes (%) (Auto) 38.0 10.0-50.0 % Monocytes (%) (Auto) 5.5 0.0-12.0 % Eosinophils (%) (Auto) 1.5 0.0-7.0 % Basophils (%) (Auto) 0.7 0.0-2.0 % Neutrophils # (Auto) 5.7 1.6-8.6 10 ^3/uL Lymphocytes # (Auto) 4.0 0.4-5.4 10 ^3/uL Monocytes # (Auto) 0.6 0-1.3 10 ^3/uL Eosinophils # (Auto) 0.2 0-0.8 10 ^3/uL Basophils # (Auto) 0.1 0-0.2 10 ^3/uL Nucleated Red Blood Cells 0.1 % Prothrombin Time Pending Prothrombin Time INR Pending Activated Partial Thromboplast Time Pending Beta HCG, Quantitative 0.3 L 1.5-4.2 mIU/mL At this time the patient was ultrasound is negative for any acute disease The patient's hemoglobin is 10 and hematocrit of 32.8 At this time, the quantitative hCG is negative We did consult with OBGYN and at this time the patient will receive Provera 10 mg p.o. q.day for 10 days The patient will return to the emergency department's condition worsens The patient will follow up with the primary care doctor or OBGYN. Images Reviewed?: Images reviewed and evaluated by me Time of 1ST Reevaluation: 19:29 Reevaluation 1ST: Unchanged Patient Education/Counseling: Diagnosis, Treatment, Prognosis, Need For Follow Up Family Education/Counseling: No Family Present Departure 1 Departure Time of Disposition: 21:46 Impression: Primary Impression: Abnormal vaginal bleeding Additional Impressions: Menorrhagia Qualified Codes: N92.1 - Excessive and frequent menstruation with irregular cycle Anemia Qualified Codes: D64.9 - Anemia, unspecified Disposition: 01 HOME / SELF CARE / HOMELESS Condition: Fair Discharged With: Self Critical Care Note Critical Care Time?: No Stability Stability form required: No Heart Score Heart Score: Heart Score Response (Comments) Value History N/A 0 EKG N/A 0 Age N/A 0 Risk Factors N/A 0 Troponin N/A 0 Total 0 I personally scribed for MAMIE JUDD MD ([email or web address]) on 10/31/24 at 18:57. Electronically submitted by Reva Pepper [email or web address]). MAMIE JUDD MD Oct 31, 2024 18:57
--- NOTE | 2024-10-31 19:57 | DVH ---
INDICATION: Severe cramping and vaginal bleeding TECHNIQUE: Multiple real-time grayscale transabdominal sonographic images along with color and duplex Doppler of the uterus and ovaries were obtained. COMPARISON: US PELVIC on DOS: 12/10/23, US PELVIC on DOS: 10/10/23 FINDINGS: Uterus is retroverted and measures approximately 8.9 x 5.8 x 6.7 cm with no abnormality demonstrated. Endometrium appears unremarkable measuring 10 mm in thickness. Right ovary measures approximately 3.7 x 2.3 x 1.9 cm and appears unremarkable with normal Doppler co byron flow. Left ovary measures approximately 3.9 x 3.3 x 2.1 cm and appears unremarkable with normal Doppler col or flow. IMPRESSION: No significant abnormality demonstrated.
[2024-10-31 20:53] LABS: Basophils # (auto) 0.1 10 ^3/uL (0-0.2); Red Cell Distribution Width 18.3 % (11.8-14.3); White Blood Cell 10.5 10^3/uL (4.4-10.8)
[2024-10-31 20:54] LABS: Basophils % (auto) 0.7 % (0.0-2.0); Eosinophils # (auto) 0.2 10 ^3/uL (0-0.8); Eosinophils % (auto) 1.5 % (0.0-7.0); Hematocrit 32.8 % (36.0-46.0); Mean Corpuscular Hemoglobin 21.9 pg (28.0-32.0); Mean Corpuscular Hgb Conc. 30.5 g/dL (32.0-36.0); Mean Corpuscular Volume 71.7 fL (80.0-100.0); Monocytes # (auto) 0.6 10 ^3/uL (0-1.3); Monocytes % (auto) 5.5 % (0.0-12.0); Neutrophils # (auto) 5.7 10 ^3/uL (1.6-8.6); Neutrophils % (auto) 54.3 % (37.0-80.0); Nucleated Red Blood Cells % 0.1 %; Platelet Count (auto) 312 10^3/uL (140-450); Red Blood Cells 4.58 10^6/uL (4.0-5.20)
[2024-10-31 21:15] LABS: INR 1.14 (0.9-1.15); Partial Thromboplastin Time 25.9 SEC (24.5-34.5); Prothrombin Time 11.9 sec (9.3-11.8)
[2024-10-31] MEDS ORDERED: MEDR5TAB28 PO (21:49)
[2024-10-31 23:00] VITALS: PULSE 78; RESP 18; O2SAT 97
[2024-10-31 23:06] VITALS: BP 107/72; PULSE 79; RESP 16; TEMP 97.9; O2SAT 97
[2024-10-31] MEDS: ONDANSETRON HCL 4 MG/2 ML VIAL IV ONE (23:08)
[2024-10-31] MEDS: MORPHINE SULFATE 4 MG/ML SYR/VIAL IV ONE (23:08)
== END 2024-10-31 23:00 | disposition home or self-care (01) ==
LOC: ER 18:40
DX: N92.1 Excessive and frequent menstruation with irregular cycle (principal); D64.9 Anemia, unspecified; E28.2 Polycystic ovarian syndrome; Z79.899 Other long term (current) drug therapy
CPT/HCPCS: 36415; 76856; 82947; 84702; 85025; 85610; 85730

== ENCOUNTER 2025-02-11 18:16 | Emergency (ER) | payer MEDICAID ==
[~2025-02-11] VITALS: Ht 160 cm; Wt 88.8 kg
[~2025-02-11 18:16] MED LIST changes: +MEDR5TAB28 PO
[2025-02-11 19:19] VITALS: TEMP 98.2
--- NOTE | 2025-02-11 19:37 | ED.PDOC ---
Back pain HPI HPI Comments 34 y.o female presents to the ED for a chief complaint of lower back pain that started 2-3 weeks ago and is now radiating to her legs and shoulders. Patient reports pain is constant, has tried using OTC pain medication such as ibuprofen and heated back patches but has no relief. Patient denies any recent falls, twisting, hx of chronic back pain or surgical intervention. Chief Complaint: Back Pain Time Seen by MD: 19:29 Primary Care Provider: UNKNOWN Reviewed Notes: Nurses Notes, Medications, Allergies Allergies: Coded Allergies: NO KNOWN ALLERGIES (Unverified , 01/22/17) Home Meds Active Scripts Medroxyprogesterone Acetate (PROVERA) 5 Mg Tab, 2 TAB PO DAILY, #20 TAB 11 Refills Prov:MAMIE JUDD MD 10/31/24 Prednisone (Prednisone) 20 Mg Tab, 60 MG PO DAILY, #15 TAB Prov:KATERINE CANCINO 05/25/24 Promethazine-Dm (Promethazine Dm 6.25-15 mg/5Ml) 1 [place], 5 ML PO TID, #160 ML Prov:KATERINE CANCINO 05/25/24 Amoxicillin Trihydrate (Amoxicillin) 875 Mg Tab, 1 TAB PO BID, #20 TAB Prov:KATERINE CANCINO 05/25/24 Acetaminophen W/ Codeine (Tylenol W/Cod #3) 1 Tab Tb, 1 TAB PO Q6HP PRN, #20 TAB Prov:IFTIKHAR ROOT PAC 01/07/24 Nitrofurantoin Monohydrate Mac (Macrobid) 100 Mg Cap, 100 MG PO BID for 7 Days, #14 CAP Prov:IFTIKHAR ROOT PAC 01/07/24 Levofloxacin Hemihydrate (LEVAQUIN 500 MG) 500 Mg Tab, 1 TAB PO DAILY, #7 TAB Prov:MARIO ANDERSON MD 12/12/23 Hydrocodone-Acetaminophen (Hydrocodone Bitartrate/AC 5-325 mg) 1 Tab Tab, 1 TAB PO Q4HP PRN, #20 TAB Prov:MARIO ANDERSON MD 12/12/23 Reported Medications Ferrous Sulfate (Iron) 325 Mg Tab, 325 MG PO, TAB 05/03/22 Information Source: Patient Mode of Arrival: Ambulatory Timing: Weeks Duration: Since onset Severity: Moderate Quality: Sharp Onset: Spontaneous Circumstance: Other History of: None Modifying Factors: Nothing Associated signs and symptoms: Other Past Medical History PAST MEDICAL HISTORY: Denies 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, Other Family History Family History: Reviewed,noncontributory to illness Social History Smoker: Non-Smoker Alcohol: Denies ETOH Use Drugs: Denies Drug Use Lives In: Home Constitutional: denies: chills, diaphoresis, fatigue, fever, malaise, sweats, weakness, others EENTM: denies: blurred vision, double vision, ear bleeding, ear discharge, ear drainage, ear pain, ear ringing, eye pain, eye redness, hearing loss, mouth pain, mouth swelling, nasal discharge, nose bleeding, nose congestion, nose pain, photophobia, tearing, throat pain, throat swelling, voice changes, others Respiratory: denies: cough, hemoptysis, orthopnea, SOB at rest, shortness of breath, SOB with excertion, stridor, wheezing, others Cardiovascular: denies: chest pain, dizzy spells, diaphoresis, Dyspnea on exertion, edema, irregular heart beat, left arm pain, lightheadedness, palpitations, PND, syncope, others Gastrointestinal: denies: abdomen distended, abdominal pain, blood streaked bowels, constipated, diarrhea, dysphagia, difficulty swallowing, hematemesis, melena, nausea, poor appetite, poor fluid intake, rectal bleeding, rectal pain, vomiting, others Genitourinary: denies: abnormal vagina bleeding, burning, dyspareunia, dysuria, flank pain, frequency, hematuria, incontinence, pain, , vagina discharge, urgency, others Neurological: denies: dizziness, fainting, headache, left sided numbness, left sided weakness, numbness, paresthesia, pre-existing deficit, right sided numbness, right sided weakness, seizure, speech problems, tingling, tremors, weakness, others Musculoskeletal: reports: back pain; denies: gout, joint pain, joint swelling, muscle pain, muscle stiffness, neck pain, others Integumetry: denies: bruises, change in color, change in hair/nails, dryness, laceration, lesions, lumps, rash, wounds, others Allergic/Immunocompromised: denies: Difficulty Healing, Frequent Infections, Hives, Itching, others Hematologic/Lymphatic: denies: anemia, blood clots, easy bleeding, easy bruising, swollen glands, others Endocrine: denies: excessive hunger, excessive sweating, excessive thirst, excessive urination, flushing, intolerance to cold, intolerance to heat, unexplained weight gain, unexplained weight loss, others Psychiatric: denies: anxiety, bipolar disorder, depression, hopeless, panic disorder, schizophrenia, sleepless, suicidal, others All Other Systems: Reviewed and Negative Physical Exam General Appearance: No Apparent Distress, Normal HEENT: Normal ENT Inspection, Pharynx Normal, TMs Normal Neck: Full Range of Motion, Non-Tender, Normal, Normal Inspection Respiratory: Chest Non-Tender, Lungs Clear, No Accessory Muscle Use, No Respiratory Distress, Normal Breath Sounds Cardiovascular: No Edema, No JVD, No Murmur, No Gallop, Normal Peripheral Pulses, Regular Rate/Rhythm Breast Exam: Deferred Gastrointestinal: No Organomegaly, Non Tender, No Pulsatile Mass, Normal Bowel Sounds, Soft Genitalia: Deferred Pelvic: Deferred Rectal: Deferred Extremities: No calf tenderness, Normal capillary refill, Normal inspection, Normal range of motion, Non-tender, No pedal edema Musculoskeletal : Location: Bilateral Extremity Location: Back (paraspinal ) Apperance: Tenderness: Moderate Neurologic: Alert, cycle director II-XII nml as Tested, No Motor Deficits, Normal Affect, Normal Mood, No Sensory Deficits Cerebellar Function: Normal Reflexes: Normal Skin: Dry, Normal Color, Warm Lymphatic: No Adenopathy Was a procedure done? Was a procedure done?: No Back Pain Differential Dx Differential Diagnosis: Musculoskeletal Pain, Pyelonephritis, Strain, Urolithiasis, Other (UTI) X-Ray, Labs, Meds, VS Vital Signs Date Time Temp Pulse Resp B/P (MAP) Pulse Ox O2 Delivery O2 Flow Rate FiO2 02/11/25 19:19 98.2 76 18 107/73 (84) 100 98.2 Lab Test 02/11/25 19:31 Range/Units Urine Color Light-yellow Yellow Urine Clarity Turbid H Clear Urine pH 6.5 5.0-9.0 Urine Specific [place] 1.021 1.001-1.035 Urine Protein Negative Negative Urine Ketones Negative Negative Urine Blood Negative Negative /uL Urine Nitrite Negative Negative Urine Bilirubin Negative Negative Urine Urobilinogen Normal Negative mg/dL Urine Leukocyte Esterase Negative Negative /uL Urine RBC 3 0 - 4 /hpf Urine Microscopic WBC 10 H 0-5 /HPF Urine Squamous Epithelial Cells Few <5 /hpf Urine Amorphous Crystals Few None Seen /hpf Urine Bacteria None seen None Seen /hpf Urine Glucose Normal Normal mg/dL Urine Test Negative Negative X-Ray, Labs, Meds, VS Comment Imaging: X-rays and CT scans were reviewed and interpreted by this provider, imaging shows no fractures and no pathological disease. Pending radiology review. Laboratory: Labs reviewed and interpreted by this provider. No significant abnormalities noted. Patient has prior medical visits reviewed. Med reconciliation performed Vital signs reviewed Time of 1ST Reevaluation: 20:00 Reevaluation 1ST: Unchanged Patient Education/Counseling: Diagnosis, Treatment, Prognosis, Need For Follow Up (Follow up in the emergency department in the next 24-48 hours if symptoms worsen. It was advised to follow up with your primary care doctor in the next 3-4 days for further evaluation.) Family Education/Counseling: No Family Present SEPSIS Sepsis Screen Date sepsis recognized/suspect: Feb 11, 2025 Time Sepsis recognized/suspect: 1909 Recent Procedure: No On Antibiotic Therapy: No Respiratory Rate >20: No Heart Rate >90: No Temp<36 C (96.8 F) or >38.3 C: No SBP <90 or MAP <65 mmHG: No New Acute Mental Status Change: No Is the patient on CPAP, BIPAP,: No Vital Signs Date Time Temp Pulse Resp B/P (MAP) Pulse Ox O2 Delivery O2 Flow Rate FiO2 02/11/25 19:19 98.2 76 18 107/73 (84) 100 98.2 Departure 1 Departure Time of Disposition: 20:11 Impression: Primary Impression: Lumbar sprain Qualified Codes: S33.5XXA - Sprain of ligaments of lumbar spine, initial encounter Additional Impression: Lumbar radiculopathy Disposition: HOME / SELF CARE / HOMELESS Condition: Stable e-Prescriptions Cyclobenzaprine Hcl (Cyclobenzaprine Hcl) 5 Mg Tab 1 TAB PO TID PRN, #30 TAB Prov: RENATE BRADYP 02/11/25 Ibuprofen Micronized (Ibuprofen) 800 Mg Tab 800 MG PO TID PRN, #60 TAB Prov: RENATE BRADY HOOK TENDER 02/11/25 Discharged With: Self Critical Care Note Critical Care Time?: No Stability Stability form required: No I personally scribed for RENATE BRADY ([email or web address]) on 02/11/25 at 19:37. Electronically submitted by Maggi Bermeo ([facility]). RENATE BRADY Feb 11, 2025 19:37
[2025-02-11 20:02] LABS: Urine Amorphous Crystal FEW /hpf (None Seen); Urine Protein, UAD Negative (Negative)
[2025-02-11] MEDS ORDERED: IBUP-1455 PO (20:12)
[2025-02-11] MEDS ORDERED: CYCL-837 PO (20:12)
[2025-02-11 21:58] VITALS: BP 111/70; PULSE 68; RESP 18; O2SAT 98
== END 2025-02-11 21:59 | disposition home or self-care (01) ==
LOC: ER 18:16
DX: S33.5XXA Sprain of ligaments of lumbar spine, initial encounter (principal); M54.16 Radiculopathy, lumbar region; Z98.890 Other specified postprocedural states; Z79.899 Other long term (current) drug therapy; X50.1XXA Overexertion from prolonged static or awkward postures, initial encounter; Y93.89 Activity, other specified; Y92.89 Other specified places as the place of occurrence of the external cause; Y99.8 Other external cause status
CPT/HCPCS: 81001; 81025